=== PATIENT | female | born 1970 | race Caucasian/White ===

== ENCOUNTER 2017-06-09 19:17 | Emergency (ER) | payer OTHER ==
[2017-06-09] MEDS ORDERED: IBUPROFEN 600 MG TAB PO ONE (19:29)
--- NOTE | 2017-06-09 19:59 | EDPHY ---
H & P Time Seen by Provider: 06/09/17 19:58 HPI/ROS: Chief complaint. Knee pain HPI. 47-year-old female presents emergency department with left knee pain and swelling. No obvious trauma. However she has been doing lot a walking. She has been wearing high heels and dancing. She has had 3-4 days of progressively increased swelling. It is stiff and hard to bend. Hurts somewhat to walk. However she has no hip, calf, ankle, foot pain. No history of knee problems. Better after ibuprofen ROS Constitutional. no fever/chills, no weakness Eyes. no problems with vision ENT. no sore throat, no nasal drainage Cardiovascular. no chest pain Respiratory. no shortness of breath, no cough Abdominal. no abdominal pain, no nausea/vomiting, no diarrhea . no problems urinating MS. Left knee pain and swelling Skin. no rash Lymph. no swollen glands Neuro. no headache, no dizziness, difficulty walking because of knee swelling , no difficulty with speech Past Medical/Surgical History: Healthy Social History: Single, daily smoker, no alcohol Smoking Status: Current some day smoker Physical Exam: General Appearance: Alert pleasant well-developed female mild distress vital signs are stay Eyes: Pupils equal and round no pallor or injection. ENT, Mouth: Mucous membranes are moist. Respiratory: There are no retractions, lungs are clear to auscultation. Cardiovascular: Regular rate and rhythm. Gastrointestinal: Abdomen is soft and nontender, no masses, bowel sounds normal. Neurological: Awake and alert, sensory and motor exams grossly normal. Skin: Warm and dry, no rashes. Musculoskeletal: Neck is supple nontender. Extremities left knee is swollen. No deformity. Mild tenderness to the medial aspect. No instability to stress. No findings for the left hip or thigh. No calf or tibial tenderness. No ankle pain or swelling no foot swelling. Dorsalis pedis pulses symmetrical and full Psychiatric: Patient is oriented X 3, there is no agitation. Constitutional: Initial Vital Signs Temperature (C) 37 C 06/09/17 19:20 Heart Rate 93 06/09/17 19:20 Respiratory Rate 18 06/09/17 19:20 Blood Pressure 125/85 H 06/09/17 19:20 O2 Sat (%) 94 06/09/17 19:20 O2 Delivery Mode Room Air Allergies/Adverse Reactions: No Known Allergies Allergy (Unverified 06/09/17 19:19) Home Medications: Medication Instructions Recorded LORAZEPAM 06/09/17 Ritalin 10mg (*) 06/09/17 Wellbutrin 100mg (*) 06/09/17 Medical Decision Making - Diagnostics Imaging Results: Imaging Impressions Knee X-Ray 06/09/17 19:29 Impression: Large suprapatellar joint effusion, with questionable localized osteochondritis involving the medial femoral articular facet. If there is further clinical concern regarding the patient's knee pain, MR imaging could be considered. X-ray reviewed by me and discussed with Dr. Xavier shows a large joint effusion. Possible osteochondritis Procedures: Patient is placed in a knee immobilizer and on crutches. Post splint application shows good anatomic position and distal motor vascular sensitivity to be intact ED Course/Re-evaluation: Re-evaluation at 8:20 p.m.. Patient and I discussed imaging study results, treatment plan including criteria for return and importance of follow-up further evaluation. She expresses understanding and agreement Differential Diagnosis: It is unclear the etiology of the patient's joint effusion and pain. No history of injury though this would certainly be consistent with an injury. I considered ligamental injury. Patient does have some evidence of osteochondritis on the x-ray and whether this is significant or not is unclear. I considered DVT as the patient has been doing some traveling however it is isolated to the knee without any calf or thigh pain or swelling - Data Points Medications Given: Discontinued Medications Ibuprofen (Motrin) 600 mg PO EDNOW ONE Stop: 06/09/17 19:30 Last Admin: 06/09/17 19:34 Dose: 600 mg Departure - Departure Disposition: Home, Routine, Self-Care Clinical Impression: Knee pain, acute Qualifiers: Laterality: left Qualified Code(s): M25.562 - Pain in left knee Condition: Good Instructions: Swollen Knee Joint (ED) Additional Instructions: Ice and elevation next 24-48 hours. Ibuprofen 600 mg every 6 hr for discomfort and swelling. Knee immobilizer for 5-7 days. Crutches as needed. Return for worsening symptoms. Call orthopedist tomorrow to make follow-up appointment. Referrals: Denis Parrish MD [Primary Care Provider] - As per Instructions Narendra Cardona MD [Medical Doctor] - 5-7 days, call for appt.
[2017-06-09 20:58] VITALS: BP 125/68; PULSE 79; RESP 16; TEMP 98.1; O2SAT 97
== END 2017-06-09 20:58 | disposition home or self-care (01) ==
DX: M25.562 Pain in left knee (principal); F17.200 Nicotine dependence, unspecified, uncomplicated
CPT/HCPCS: L1830